=== PATIENT | female | born 1975 | race Asian ===

== ENCOUNTER → 2017-06-23 | Outpatient (CLI) | payer OTHER | LOC: FIMAGING 11:14 | PROVIDERS: ATTEND Nurse Practitioner Adult Health | DX: Z12.31 Encounter for screening mammogram for malignant neoplasm of breast (principal) | CPT/HCPCS: G0202 ==

== ENCOUNTER 2018-02-23 15:04 | Emergency (ER) | payer OTHER ==
--- NOTE | 2018-02-23 15:19 | CPEKG ---
Heart Rate: 50 RR Interval: 1200 P-R Interval: 188 QRSD Interval: 82 QT Interval: 456 QTC Interval: 416 P [place]: -10 QRS [place]: 70 T Wave [place]: 54 EKG Severity - NORMAL ECG - EKG Impression: SINUS RHYTHM Electronically Signed By: José Miguel Spears 23-Feb-2018 15:44:51
--- NOTE | 2018-02-23 15:41 | EDPHY ---
H & P Time Seen by Provider: 02/23/18 15:17 HPI/ROS: CHIEF COMPLAINT: The right-sided chest pain HISTORY OF PRESENT ILLNESS: This 43-year-old woman presents with several episodes of moderate right-sided chest pain which started today at 2:30 p.m.. She describes pain in the right side of her lower chest which was"vice like "radiated to her jaw which lasted 30 sec while she was meeting with her psychologist. Symptoms are almost gone now. She did have a single short episode on the left side of her chest. Not associated with coughing or fever or leg swelling. No recent immobilization or trauma. She does have a lot of stress recently well with multiple events in the last week including getting her citizenship, having her birthday, the 1 year anniversary of her father's suicide, and an upcoming trip tomorrow. REVIEW OF SYSTEMS: Eye: no change in vision ENT: no sore throat, a little bit of a scratchy throat on Friday during dinner which is resolved Cardiac: No palpitations or syncope Pulmonary: no cough or SOB Abdomen: no vomiting, diarrhea, abdominal pain Musculoskeletal: no back pain or leg swelling Skin: no rash Neuro: no headache Constitutional: no fever : no urinary symptoms A comprehensive 10 point review of systems is otherwise negative aside from elements mentioned in the history of present illness. PAST MEDICAL HISTORY: Negative for hypertension or diabetes, does have high cholesterol. Family history negative for venous thromboembolism or premature coronary disease Social history: Negative for tobacco or cocaine use General Appearance: Alert and conversant, cooperative. Eyes: No scleral icterus. ENT, Mouth: Normal mucous membranes. Respiratory: Normal respiratory effort, breath sounds equal, lungs are clear to auscultation. Cardiovascular: Regular rate and rhythm. Gastrointestinal: Abdomen is soft and non tender. Neurological: Alert, face symmetric, normal motor and sensory in extremities. Skin: Warm and dry, no rashes. Musculoskeletal: No peripheral edema. No calf tenderness. Psychiatric: Not agitated. Emergency Department course/MDM: Does not tachycardic or hypoxic, no leg swelling or hemoptysis, no recent immobilization or surgery. No previous for PE or DVT and negative for hormone use. Heart score is low risk for ACS. 1609: Negative troponin and normal chest x-ray, perc negative for PE, stable for discharge. Results discussed with patient and . Smoking Status: Never smoked Constitutional: Initial Vital Signs Temperature (C) 36.8 C 02/23/18 15:09 Heart Rate 60 02/23/18 15:09 Respiratory Rate 19 02/23/18 15:09 Blood Pressure 131/88 H 02/23/18 15:09 O2 Sat (%) 98 02/23/18 15:09 O2 Delivery Mode Room Air Allergies/Adverse Reactions: cephalexin Allergy (Verified 02/23/18 15:08) Home Medications: Medication Instructions Recorded NK [No Known Home Meds] 02/23/18 Medical Decision Making - Diagnostics EKG Interpretation: 12-lead EKG interpreted by me; official reading is in trace master. My interpretation is the sinus rhythm rate 50 with no ischemic changes. Imaging Results: Imaging Impressions Chest X-Ray 02/23/18 15:39 Impression: No acute findings in the chest. Imaging: I viewed and interpreted images myself - Data Points Laboratory Results: Laboratory Results 02/23/18 15:20 02/23/18 15:20 02/23/18 02/23/18 15:20 15:20 WBC 6.59 10^3/uL 10^3/uL (3.80-9.50) RBC 4.85 10^6/uL 10^6/uL (4.18-5.33) Hgb 14.8 g/dL g/dL (12.6-16.3) Hct 44.5 % % (38.0-47.0) MCV 91.8 fL fL (81.5-99.8) MCH 30.5 pg pg (27.9-34.1) MCHC 33.3 g/dL g/dL (32.4-36.7) RDW 13.3 % % (11.5-15.2) Plt Count 355 10^3/uL 10^3/uL (150-400) MPV 9.8 fL fL (8.7-11.7) Neut % (Auto) 48.9 % % (39.3-74.2) Lymph % (Auto) 42.5 % % (15.0-45.0) [place] % (Auto) 6.1 % % (4.5-13.0) Eos % (Auto) 1.4 % % (0.6-7.6) Baso % (Auto) 0.8 % % (0.3-1.7) Nucleat RBC Rel Count 0.0 % % (0.0-0.2) Absolute Neuts (auto) 3.23 10^3/uL 10^3/uL (1.70-6.50) Absolute Lymphs (auto) 2.80 10^3/uL 10^3/uL (1.00-3.00) Absolute Monos (auto) 0.40 10^3/uL 10^3/uL (0.30-0.80) Absolute Eos (auto) 0.09 10^3/uL 10^3/uL (0.03-0.40) Absolute Basos (auto) 0.05 10^3/uL 10^3/uL (0.02-0.10) Absolute Nucleated RBC 0.00 10^3/uL 10^3/uL (0-0.01) Immature Gran % 0.3 % % (0.0-1.1) Immature Gran # 0.02 10^3/uL 10^3/uL (0.00-0.10) Sodium 140 mEq/L mEq/L (135-145) Potassium 4.1 mEq/L mEq/L (3.5-5.2) Chloride 104 mEq/L mEq/L (97-110) Carbon Dioxide 21 mEq/l L mEq/l (22-31) Anion Gap 15 mEq/L mEq/L (8-16) BUN 12 mg/dL mg/dL (7-23) Creatinine 0.7 mg/dL mg/dL (0.6-1.0) Estimated GFR > 60 Glucose 88 mg/dL mg/dL (70-100) Calcium 9.6 mg/dL mg/dL (8.5-10.4) Troponin I < 0.012 ng/mL ng/mL (0.000-0.034) Departure - Departure Disposition: Home, Routine, Self-Care Clinical Impression: Chest pain Qualifiers: Chest pain type: unspecified Qualified Code(s): R07.9 - Chest pain, unspecified Condition: Good Instructions: Chest Pain (ED) Referrals: Kaushik Hinson MD [Primary Care Provider] - As per Instructions
[2018-02-23 15:48] LABS: PLATELET COUNT 355 10^3/uL (150-400)
[2018-02-23 16:28] VITALS: BP 99/67
== END 2018-02-23 16:26 | disposition home or self-care (01) ==
DX: R07.9 Chest pain, unspecified (principal)